=== PATIENT | male | born 1955 | race Caucasian/White ===

== ENCOUNTER → 2018-02-19 | Outpatient (CLI) | payer BC | END | disposition home or self-care (01) | LOC: LAB SHORT 07:48 → PLD 07:48 | DX: L30.8 Other specified dermatitis (principal) | CPT/HCPCS: 88305 ==

== ENCOUNTER 2018-12-25 11:34 | Day surgery (SDC) | payer BC ==
[~2018-12-25] VITALS: Ht 170 cm; Wt 71.6 kg
[2018-12-25] MEDS ORDERED: PRAV20 (12:39)
[2018-12-25] MEDS ORDERED: SILDENAFIL20 MG PO (12:40)
--- NOTE | 2018-12-25 12:57 | NUR ---
"DAY SURGERY | REPORT TO BRENDAN TAYLOR"
--- NOTE | 2018-12-25 13:24 | NUR ---
12/25/18 1324 Adolfo Rodriguez PATIENT DETERMINED TO BE ASA APPROPRIATE FOR PROPOFOL SEDATION PRIOR TO START OF PROCEDURE BY . 3-LEAD EKG REVIEWED WITH PHYSICIAN PRIOR TO START OF PROCEDURE.PATIENT CONFIRMS NPO STATUS AND AGREES WITH SCHEDULED PROCEDURE.History, Chart, Medications and Allergies reviewed before start of procedure.MONITOR INTACT WITH CONTINUOUS PULSE OXIMETRY AND INTERMITTENT BP.O2 VIA N/C INTACT THROUGHOUT SEDATION/PROCEDURE.
--- NOTE | 2018-12-25 14:44 | NUR ---
Patient up to Ambulate independently. Gait steady. Discharge instructions reviewed with patient. Patient verbalizes understanding. Copy given to patient to take home. Discharged via wheelchair to private car for ride home.
== END 2018-12-25 14:46 | disposition home or self-care (01) ==
LOC: ORSCMMR 11:34 → ORD 13:15 → ORSCMMR 13:15 → ORSCSDS 13:15 → ORSCMMR 14:46
PROVIDERS: Internal Medicine Gastroenterology
PROC: 0DBN8ZX Excision of Sigmoid Colon, Via Natural or Artificial Opening Endoscopic, Diagnostic (ICD-10-PCS; principal; 2018-12-25 13:15)
DX: Z12.11 Encounter for screening for malignant neoplasm of colon (principal); K63.5 Polyp of colon; E78.5 Hyperlipidemia, unspecified; Z79.899 Other long term (current) drug therapy
CPT/HCPCS: 88305; J2704; J7120